=== PATIENT | male | born 1995 | race Two or more races ===

== ENCOUNTER 2018-10-19 22:40 | Emergency (ER) | payer OTHER ==
[2018-10-19 22:47] VITALS: BP 117/75; PULSE 80; TEMP 98.2; BMI 31.0
--- NOTE | 2018-10-19 22:54 | PDOC ---
History of Present Illness - General Chief Complaint: Ear Problem Stated Complaint: B/L EAR PAIN Time Seen by Provider: 10/19/18 22:44 History Source: Patient Exam Limitations: No Limitations - History of Present Illness Initial Comments: 10/19/18 22:54 This is a 23-year-old male who comes in complaining of bilateral ear pain times one day. Patient denies any fevers or chills. Patient denies any cough congestion or any other complaints. Patient is otherwise healthy and takes no medications. 10/19/18 22:54 Allergies: as per nursing notes Past Medical History: none Social history: Lives with family. No smoking. No alcohol. No illicit drugs. Surgical history: None General: No fevers or chills, no weakness, no weight loss HEENT: No change in vision. No sore throat,. No ear pain CardioVascular: no chest discomfort. No shortness of breath Respiratory:No cough, or wheezing. Gastrointestinal: no nausea, vomiting, diarrhea or constipation, No rectal bleeding Genitourinary: No dysuria, hematuria, or frequency Musculoskeletal: No joint or muscle pain or swelling Neurologic: No headache, vertigo, dizziness or loss of consciousness Psychiatric: nor depression Skin: No rashes or easy bruising Endocrine: no increased thirst or abnormal weight change Allergic: no skin or latex allergy All other systems reviewed and normal GENERAL: The patient is awake, alert, and fully oriented, in no acute distress. HEAD: Normal with no signs of trauma. EARS: His erythema bilateral of the tympanic membrane otherwise external canal is normal. There is no bulging of the tympanic membrane. EYES: Pupils equal, round and reactive to light, extraocular movements intact, sclera anicteric, conjunctiva clear. EXTREMITIES:atraumatic, Normal range of motion, no edema. NEUROLOGICAL: Normal speech, normal gait. PSYCH: Normal mood, normal affect. SKIN: Warm, Dry, normal turgor, no rashes or lesions noted. Assessment and plan: This is a 23-year-old male with bilateral otitis media fairly mild patient started on a antibiotic and discharged home told to also get a decongestant. Past History - Past Medical History Allergies/Adverse Reactions: Allergies Allergy/AdvReac Type Severity Reaction Status Date / Time No Known Allergies Allergy Unverified 10/19/18 22:41 Home Medications: Ambulatory Orders NK [No Known Home Medication] 10/19/18 *DC/Admit/Observation/Transfer Diagnosis at time of Disposition: Bilateral otitis media Qualifiers: Otitis media type: unspecified Qualified Code(s): H66.93 - Otitis media, unspecified, bilateral - Discharge Dispostion Disposition: HOME Condition at time of disposition: Stable Decision to Admit order: No - Referrals Referrals: Shashi Barahona MD [Primary Care Provider] - - Patient Instructions Additional Instructions: Some [id number] decongestant and take it for the next 2-3 days. For the infection take Augmentin 1 tablet twice a day for 10 days . Return to the emergency department immediately with ANY new, persistent or worsening symptoms. Continue any medications as previously prescribed by your physician. You should follow up with your primary doctor as soon as possible regarding today's emergency department visit. . Please make sure your doctor reviews the results of your emergency evaluation. Thank you for coming to the Emergency Department today for your care. It was a pleasure to see you today. Please note that your evaluation is INCOMPLETE until you follow-up with your doctor. - Post Discharge Activity
[2018-10-19] MEDS ORDERED: IBUPROFEN 600 MG TABLET (FP) PO ONE ×2 (23:02→23:06)
[2018-10-19] MEDS ORDERED: AMOX TR/POT CLAV 875MG/125MG TABLETS (FP) PO ONE (23:02)
[2018-10-19] MEDS ORDERED: AMOX TR/POT CLAV 875MG/125MG TABLETS (FP) ONE ×2 (23:06→23:07)
== END 2018-10-19 23:11 | disposition home or self-care (01) ==
LOC: FER 22:40
DX: H66.93 Otitis media, unspecified, bilateral (principal)
CPT/HCPCS: 99281-25

== ENCOUNTER 2018-10-20 21:50 | Emergency (ER) | payer OTHER | END 2018-10-20 23:14 | disposition home or self-care (01) | LOC: FER 21:50 ==